=== PATIENT | female | born 1975 | race American Indian/Alaskan Native ===

== ENCOUNTER 2016-12-15 08:14 | Outpatient (CLI) | payer MEDICAID ==
--- NOTE | 2016-12-15 12:03 | Ultrasound Report ---
BILATERAL DIGITAL DIAGNOSTIC MAMMOGRAM with CAD and RIGHT BREAST ULTRASOUND: 12/15/16 08:30:00 CLINICAL: Right breast lump for 2 years. COMPARISON:None. These are baseline studies. FINDINGS: The breasts are heterogeneously dense, which may obscure small masses.No mass, architectural distortion or suspicious calcifications . No mammographic finding as a right upper outer palpable marker. Several foci of benign fat necrosis with calcifications in the upper outer quadrant of the right breast. Ultrasound of the right breast in the upper-outer quadrant demonstrated normal fibroglandular structures. No mass, cyst or shadowing. IMPRESSION: Negative mammogram and negative targeted right breast ultrasound. BI-RADS CATEGORY: 2 -- Benign RECOMMENDATION: Clinical follow-up of the palpable area and routine mammographic screening in one year. ACR BI-RADS MAMMOGRAPHIC CODES: 0 = Needs additional imaging evaluation; 1 = Negative; 2 = Benign; 3 = Probably benign; 4 = Suspicious; 5 = Malignant; 6 = Known biopsy-proven malignancy COMMENT: 1. Dense breast tissue, i.e., adenosis, fibrocystic changes, etc., may obscure an underlying neoplasm. 2. Approximately 10% of cancers are not detected with mammography. 3. A negative mammography report should not delay biopsy if a clinically suspicious mass is present. COMMENT: Patient follow-up letters are generated by our [employer] application.
== END 2016-12-15 08:15 | disposition home or self-care (01) ==
LOC: MAMMO 08:14
PROVIDERS: ATTEND Advanced Practice Midwife
DX: N60.01 Solitary cyst of right breast (principal); N63 Unspecified lump in breast; R92.1 Mammographic calcification found on diagnostic imaging of breast
CPT/HCPCS: 76642; G0204; 77066

== ENCOUNTER 2018-01-05 09:53 | Outpatient (CLI) | payer MEDICAID ==
--- NOTE | 2018-01-06 12:50 | XRay Report ---
Right foot 3 views: History: Gout. Findings: No previous reaction lytic lesion or soft tissue calcification or bony erosion. Impression: Essentially negative right foot .
== END 2018-01-05 09:54 | disposition home or self-care (01) ==
LOC: XRAY 09:53
PROVIDERS: ATTEND Pain Medicine Interventional Pain Medicine
DX: M10.9 Gout, unspecified (principal); I10 Essential (primary) hypertension; F17.200 Nicotine dependence, unspecified, uncomplicated

== ENCOUNTER 2020-05-09 09:06 | Outpatient (CLI) | payer MEDICAID ==
--- NOTE | 2020-05-09 10:06 | XRay Report ---
BILATERAL TIBIA AND FIBULA 2 VIEWS INDICATION: NEOPLASM OF UNSPECIFIED BEHAVIOR OF BONE,SOFT TISSUE. COMPARISON: None. IMPRESSION: No acute osseous or soft tissue abnormality. No significant DJD. No abnormal bone les ion is detected on x-ray. Signer Name: Edvin Cox Jr, MD Signed: 05/09/2020 10:01 AM Workstation Name: [id number]
== END 2020-05-09 09:07 | disposition home or self-care (01) ==
LOC: VAS 09:06
PROVIDERS: ATTEND Podiatrist Foot & Ankle Surgery
DX: D49.2 Neoplasm of unspecified behavior of bone, soft tissue, and skin (principal); M79.9 Soft tissue disorder, unspecified

== ENCOUNTER 2020-05-14 13:58 | Outpatient (CLI) | payer MEDICAID ==
--- NOTE | 2020-05-14 15:33 | Vascular Lab Report ---
DUPLEX DOPPLER LOWER EXTREMITY VEINS, BILATERAL INDICATION / CLINICAL INFORMATION: pain/ edema. TECHNIQUE: Duplex doppler imaging was performed through the veins of both lower extremities using venous francie keren and other maneuvers. COMPARISON: None available. FINDINGS: RIGHT COMMON FEMORAL VEIN: Negative. RIGHT FEMORAL VEIN: Negative. RIGHT POPLITEAL VEIN: Negative. RIGHT CALF VEINS: Negative. LEFT COMMON FEMORAL VEIN: Negative. LEFT FEMORAL VEIN: Negative. LEFT POPLITEAL VEIN: Negative. LEFT CALF VEINS: Negative. ADDITIONAL FINDINGS: None. IMPRESSION: 1. No sonographic evidence for DVT in either lower extremity. Signer Name: Julius Blue MD Signed: 05/14/2020 3:29 PM Workstation Name: [id number]
== END 2020-05-14 13:59 | disposition home or self-care (01) ==
LOC: VAS 13:58
PROVIDERS: ATTEND Podiatrist Foot & Ankle Surgery
DX: D49.2 Neoplasm of unspecified behavior of bone, soft tissue, and skin (principal)
CPT/HCPCS: 93970